=== PATIENT | female | born 1955 | race Caucasian/White ===

== ENCOUNTER 2017-10-20 18:44 | Emergency (ER) | payer OTHER ==
[~2017-10-20] VITALS: Ht 160 cm; Wt 81.6 kg
[2017-10-20 19:52] LABS: Basophils # (auto) 0.1 uL; Basophils % (auto) 0.6 % (0.0-2.0); Eosinophils # (auto) 0.1 uL; Eosinophils % (auto) 1.3 % (0.0-7.0); Hematocrit 44.6 % (36.0-46.0); Hemoglobin 15.3 g/dL (12.2-16.2); Lymphocytes # (auto) 3.1 uL; Lymphocytes % (auto) 34.7 % (10.0-50.0); Mean Corpuscular Hemoglobin 29.6 pg (28.0-32.0); Mean Corpuscular Hgb Conc. 34.4 g/dL (32.0-36.0); Mean Corpuscular Volume 86.2 fL (80.0-100.0); Monocytes # (auto) 0.7 uL; Monocytes % (auto) 8.3 % (0.0-12.0); Neutrophils # (auto) 4.9 uL; Neutrophils % (auto) 55.1 % (37.0-80.0); Nucleated Red Blood Cells % 0.4 %; Platelet Count (auto) 228 10^3/uL (140-450); Red Blood Cells 5.18 10^6/uL (4.0-5.20); Red Cell Distribution Width 13.5 % (11.8-14.3); White Blood Cell 8.9 10^3/uL (4.4-10.8)
[2017-10-20 20:13] LABS: Alanine Aminotransferase 45 U/L (13-56); Albumin 4.1 g/dL (3.4-5.0); Alkaline Phosphatase 105 U/L (45-117); Anion Gap 11 (5-15); Aspartate Aminotransferase 25 U/L (15-37); BUN/Creatinine Ratio 25.4; Bilirubin, Total 0.4 mg/dL (0.2-1.0); Blood Urea Nitrogen 16 mg/dL (7-18); Calcium 8.7 mg/dL (8.5-10.1); Carbon Dioxide 23 mmol/L (21-32); Chloride 105 mmol/L (98-107); GFR African American 122 mL/min; GFR Non-African American 101 mL/min; Glucose 106 mg/dL (74-106); Magnesium 2.8 mg/dL (1.6-2.6); Potassium 3.6 mmol/L (3.5-5.1); Sodium 139 mmol/L (136-145); Total Protein 7.6 g/dL (6.4-8.2)
[2017-10-20] MEDS ORDERED: LORazepam 0.5 MG TAB PO ONE (21:30)
[2017-10-20 21:32] LABS: INR 0.93 (0.9-1.15); Partial Thromboplastin Time 29.5 sec (23.78-33.04)
[2017-10-20] MEDS ORDERED: LORazepam 0.5 MG TAB ONE (21:38)
[2017-10-20 22:51] VITALS: BP 144/75
[2017-10-20] MEDS ORDERED: PROMETHAZINE HCL 25 MG/ML 1ML IV ONE (23:45)
== END 2017-10-21 01:41 | disposition home or self-care (01) ==
LOC: EDSEX 18:47 → ER 18:47
DX: R07.89 Other chest pain (principal); F41.9 Anxiety disorder, unspecified; I10 Essential (primary) hypertension; Z88.2 Allergy status to sulfonamides; Z91.041 Radiographic dye allergy status
CPT/HCPCS: 36415; 36600; 71045; 80053; 82805; 83735; 83880; 84484; 85025; 85610; 85730; 93005; 96374; 99285; J2550